=== PATIENT | female | born 1995 | race Caucasian/White ===

== ENCOUNTER → 2016-10-12 08:40 | Observation (INO) ==
[2016-10-12 08:22] LABS: Bilirubin,Urine Negative (Negative); Blood,Urine Negative (Negative); Clarity,Urine Turbid (Clear); Color,Urine Yellow (Yellow); Glucose,Urine (UA) Normal (Normal); Ketones,Urine Negative (Negative); Leukocyte Esterase,Urine Trace (Negative); Nitrite,Urine Negative (Negative); Protein,Urine Negative (Neg-Trace); Specific Gravity,Urine 1.017 (1.010-1.025); Urobilinogen,Urine Normal (Normal)
[2016-10-12 08:26] LABS: Bacteria,Urine Moderate per hpf (None-Few); Hyaline Casts,Urine None Seen per lpf (None-Few); RBC,Urine 0-3 per hpf (0-3); Squamous Epithelial Cell,Urine Many per lpf (None-Few)
[2016-10-12 08:38] LABS: Amorphous Sediment,Urine Present (Few)
--- NOTE | 2016-10-12 08:49 | Discharge Summary ---
Date of Encounter: 10/12/16 Time of Encounter: 08:49 - Discharge Diagnosis (1) Decreased movement Priority: Primary Status: Acute Comments: Patient arrives to labor and delivery triage with c/o decreased movement and cramping. 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 she denies a history of labor and with this and previous pregnancies. She states this has been uncomplicated. She denies vaginal bleeding, leaking of fluid, vaginal discharge, epigastric pain, and headache. When assessed by this CNM, patient states that she has had normal movement since arriving to triage. She denies intercourse in the past 48 hours. Urinalysis - contaminated monitoring - appropriate for gestational age, 150's with moderate variability and 10x10 accels. [place] - irritability Discharged home with labor precautions Encouraged oral hydration and good nutrition. Encouraged patient to follow up with primary SENIOR LEAD SOFTWARE ENGINEER as previously scheduled and as needed. Qualifiers: Fetus number: single or unspecified fetus Trimester: second trimester Qualified Code(s): O36.8120 - Decreased movements, second trimester, not applicable or unspecified (2) 26 weeks gestation of Priority: Primary Status: Acute Comments: Follow up with Dr Aguilar as previously scheduled for care. - Discharge Medications Home Medications: Ciprofloxacin HCl [Cipro] 500 mg PO BID #14 tablet 08/26/15 [Rx] Phenazopyridine HCl [Pyridium] 200 mg PO TIDAC #6 tab 08/26/15 [Rx] HYDROcodone/Acet 5/325 mg [Angora 5-325 mg] 1 tab PO Q6H PRN #012 tab 09/09/16 [ Rx] Pnv Plus Multivit Tab 10/12/16 [History] Allergies/Adverse Reactions: Allergies No Known Allergies Allergy (Verified 09/09/16 15:20) Data Procedures and tests throughout hospitalization: Laboratory Tests 10/12/16 08:17 Ur Specimen Adequacy See below A Urine Color Yellow Urine Clarity Turbid A Urine pH 7.0 Ur Specific [place] 1.017 Urine Protein Negative Urine Glucose (UA) Normal Urine Ketones Negative Urine Blood Negative Urine Nitrite Negative Urine Bilirubin Negative Urine Urobilinogen Normal Ur Leukocyte Esterase Trace H Urine Microscopic RBC 0-3 Urine Microscopic WBC 5-15 H Ur Squamous Epith Cells Many H Amorphous Sediment Present Urine Bacteria Moderate H Hyaline Casts None Seen Ur Culture Indicated? YES A Labs on day of discharge: Labs from last 24 hours 10/12/16 08:17 Ur Specimen Adequacy See below A Urine Color Yellow Urine Clarity Turbid A Urine pH 7.0 Ur Specific [place] 1.017 Urine Protein Negative Urine Glucose (UA) Normal Urine Ketones Negative Urine Blood Negative Urine Nitrite Negative Urine Bilirubin Negative Urine Urobilinogen Normal Ur Leukocyte Esterase Trace H Urine Microscopic RBC 0-3 Urine Microscopic WBC 5-15 H Ur Squamous Epith Cells Many H Amorphous Sediment Present Urine Bacteria Moderate H Hyaline Casts None Seen Ur Culture Indicated? YES A Date of admission: 10/12/16 07:17 Discharging clinician: Sonia Reece Anticipated date of discharge: 10/12/16 - Patient Status Disposition: Home, Self-Care Condition: Good Functional capacity at discharge: independent ambulation Overall status at discharge: patient is back to baseline - Discharge Instructions Follow Up With: Gilberto Aguilar MD [Non-Partnered Physician] - Additional Instructions: LABOR AND DELIVERY DISCHARGE INSTRUCTIONS Signs and Symptoms to be Reported to your Doctor Immediately: * Sudden gush, continuous or intermittent lead of fluid from vagina (note the time of gush and color of fluid) * Onset of bright red vaginal bleeding with or without pain (if you had a vaginal exam during this visit you may notice some dark red spotting. This is normal.) * Lower abdominal cramping or backache that is premenstrual-like feeling. * More than 6 contractions in one hour. * Burning during urination, having to urinate more frequently or pain in your mid-back. * A change in the baby's activity. This could be an increase or decrease in activity. * Severe headache which does not go away with tylenol. * Sudden swelling in the face, hands, arms and/or legs. * Upper abdominal pain - sometimes associated with heartburn or nausea and is not relieved by Maalox, Mylanta or Tums. * Dizziness or blurred vision or visual disturbances (seeing stars/lights). * Kick Counts One hour after a meal, lay down on one side in a quiet place. Count the number of adiel the baby moves during an hour. If less than 6 movements, notify your physician. Diet: *Force fluids - 8-10 tall glasses of fluid per day. May include popsicles and jello. *Limit caffeine - this includes chocolate, coffee, tea, any soft drink containing such as all saul, Quinn Yellow and Mountain Dew keep scheduled appointment with Dr Aguilar - Diet and Activity Activity: resume usual activities as tolerated Diet: regular diet Hospital Course EMERGENCY MANAGEMENT PROGRAM SPECIALIST Time Attestation: Total time spent providing and/or coordinating discharge services: Time Spent: Less than 30 minutes Exam - Constitutional General appearance IM: cooperative, A&O X 3, pleasant - Respiratory Respiratory exam: Present: CTAB - Cardiovascular Cardiovascular exam IM: Present: RRR, +S1, +S2 - GI/Abdominal GI/Abdominal exam IM: normal bowel sounds - Rectal Rectal exam: deferred - Additional comments: Appropriate for gestational age; positive movement per patient report FHTs 150's with moderate variability and 10x10 accels with no decels. [place] - irritability. - Extremities Exam Extremities exam IM: Present: normal capillary refill, normal inspection, radial pulses palpable and symetrical - Neurological Exam Neurological exam: alert, oriented X3, reflexes normal
== END | disposition home or self-care (01) ==
LOC: 1NENULAB
PROVIDERS: ADMIT Obstetrics & Gynecology; ATTEND Obstetrics & Gynecology

== ENCOUNTER → 2016-12-11 20:55 | Observation (INO) ==
[2016-12-11 19:09] LABS: Bilirubin,Urine Negative (Negative); Blood,Urine Negative (Negative); Clarity,Urine Cloudy (Clear); Color,Urine Yellow (Yellow); Glucose,Urine (UA) Normal (Normal); Ketones,Urine Negative (Negative); Leukocyte Esterase,Urine Small (Negative); Nitrite,Urine Negative (Negative); PH,Urine 6.5 pH Units (5.0-8.0); Protein,Urine Negative (Neg-Trace); Urobilinogen,Urine Normal (Normal)
[2016-12-11 19:10] LABS: Bacteria,Urine Moderate per hpf (None-Few); Hyaline Casts,Urine None Seen per lpf (None-Few); Squamous Epithelial Cell,Urine Many per lpf (None-Few)
[2016-12-11 19:15] LABS: Amphetamine Screen,Urine Negative ng/mL (Cutoff=1000); Barbiturate Screen,Urine Negative ng/mL (Cutoff=200); Benzodiazepines Screen,Urine Negative ng/mL (Cutoff=200); Cannabinoid Screen,Urine Negative ng/mL (Cutoff = 50); Cocaine Screen,Urine Negative ng/mL (Cutoff= 300); Opiate Screen,Urine Negative ng/mL (Cutoff=300); Phencyclidine Screen,Urine Negative ng/mL (Cutoff=25)
[2016-12-11 19:20] LABS: RBC,Urine 0-3 per hpf (0-3)
--- NOTE | 2016-12-15 18:31 | OB/GYN Progress Note ---
Date of Encounter: 12/15/16 Time of Encounter: 18:29 - Assessment and Plan (1) 34 weeks gestation of Status: Acute (2) Vaginal discharge during in third trimester Status: Acute Pt believes she has a yeast infection like she has had in the past. RN reports thick, white discharge with SVE. Rx for terazol cream called to pharmacy. Subjective - Subjective Interval history: Pt seen and evaluated by nursing staff for vaginal discharge. Nitrazine negative. White, thick, discharge noted on exam. No cervical change while in triage. Antepartum ROS: movement normal, contractions, no loss of fluid, no vaginal bleeding Objective - Exam FHR: category 1 FHR comments: NST reactive - Labs Labs: Abnormal lab results Urine Clarity Cloudy (Clear) A 12/11/16 18:49 Ur Leukocyte Esterase Small (Negative) H 12/11/16 18:49 Urine Microscopic WBC 5-15 per hpf (0-3) H 12/11/16 18:49 Ur Squamous Epith Cells Many per lpf (None-Few) H 12/11/16 18:49 Urine Bacteria Moderate per hpf (None-Few) H 12/11/16 18:49 Ur Culture Indicated? YES (NO) A 12/11/16 18:49
== END | disposition home or self-care (01) ==
LOC: 1NENULAB
PROVIDERS: ADMIT Registered Nurse; ATTEND Registered Nurse

== ENCOUNTER → 2017-01-01 20:10 | Observation (INO) ==
[2017-01-01 18:28] LABS: Amphetamine Screen,Urine Negative ng/mL (Cutoff=1000); Barbiturate Screen,Urine Negative ng/mL (Cutoff=200); Benzodiazepines Screen,Urine Negative ng/mL (Cutoff=200); Cannabinoid Screen,Urine Negative ng/mL (Cutoff = 50); Cocaine Screen,Urine Negative ng/mL (Cutoff= 300); Opiate Screen,Urine Negative ng/mL (Cutoff=300); Phencyclidine Screen,Urine Negative ng/mL (Cutoff=25)
[2017-01-01 19:00] LABS: Basophils % 0.3 %; Eosinophils # 0.2 K/mcL (0.0-0.6); Eosinophils % 1.5 %; Hematocrit 30.3 % (35.3-44.9); Hemoglobin 9.5 g/dL (11.5-15.4); Immature Granulocytes % 1.7 % (0-4); Lymphocytes # 1.8 K/mcL (0.6-4.6); Lymphocytes % 17.6 %; Mean Corpuscular HGB Conc 31.4 g/dL (31.6-35.5); Mean Corpuscular Hemoglobin 25.1 pg (28.0-33.3); Mean Corpuscular Volume 80.2 fL (83.0-100.0); Mean Platelet Volume 11.1 fL (9.4-12.4); Monocytes # 1.2 K/mcL (0.0-1.3); Monocytes % 11.8 %; Neutrophils # 6.9 K/mcL (1.6-8.9); Platelet Count 166 K/mcL (140-400); Red Blood Count 3.78 M/mcL (3.82-4.97); Red Cell Distribution Width 17.1 % (11.5-14.5); Segmented Neutrophils % 67.1 %
[2017-01-01 19:12] LABS: Protein/Creatinine Ratio,Urine 0.17 mg/mg (0-0.20)
[2017-01-01 19:14] LABS: Aspartate Amino Transferase 13 Units/L (5-34); BUN/Creatinine Ratio 15 (6-26); Blood Urea Nitrogen 9 mg/dL (7-20); Lactate Dehydrogenase 161 Units/L (159-327); Uric Acid 5.2 mg/dL (2.6-6.0); eGFR For African Americans > 60 (> 60); eGFR For Non-African Americans > 60 (> 60)
[2017-01-01 19:17] LABS: Alanine Aminotransferase < 6 Units/L (0-55)
--- NOTE | 2017-01-01 20:03 | Discharge Summary ---
Date of Encounter: 01/01/17 Time of Encounter: 20:04 - Discharge Diagnosis (1) NST (non-stress test) reactive Priority: Secondary Status: Acute Comments: Reactive NST; category I tracing (2) headache in third trimester Priority: Primary Status: Acute Comments: Ms Fernandes presents with a headache for the past 2 days with increased swelling of hands and feet. She states decreased movement since Monday, but still making kick counts. She denies contractions/cramping/pain, leaking of fluid, vaginal bleeding/discharge, visual disturbances, and epigastric pain. Blood pressures WNL PIH labs WNL; H/H decreased will send home with BID ferrous sulfate, stressed importance of taking UDS negative Urine pro/crea WNL Reactive NST Discharge home with labor precautions and PIH precautions. Follow up in office as schedule and PRN (3) Anemia affecting in third trimester Priority: Primary Status: Acute Comments: H/H decreased - Rx for ferrous sulfate given. Discussed importance of taking. (4) Decreased movement Priority: Primary Status: Acute Comments: Reactive NST Qualifiers: Fetus number: single or unspecified fetus Trimester: third trimester Qualified Code(s): O36.8130 - Decreased movements, third trimester, not applicable or unspecified (5) 37 weeks gestation of Priority: Secondary Status: Acute - Discharge Medications Prescriptions: Docusate [Colace] 100 mg PO BID PRN #60 capsule PRN Reason: Constipation Ferrous Sulfate 325 mg PO BIDWM #60 tablet Home Medications: Docusate [Colace] 100 mg PO BID PRN #60 capsule 01/01/17 [Rx] Ferrous Sulfate 325 mg PO BIDWM #60 tablet 01/01/17 [Rx] Allergies/Adverse Reactions: 3 Allergy/AdvReac Type Severity Reaction Status Date / Time No Known Allergies Allergy Verified 01/01/17 17:33 Data Procedures and tests throughout hospitalization: Laboratory Tests 01/01/17 01/01/17 01/01/17 17:55 18:50 18:50 WBC 10.3 RBC 3.78 L Hgb 9.5 L Hct 30.3 L MCV 80.2 L MCH 25.1 L MCHC 31.4 L RDW 17.1 H Plt Count 166 MPV 11.1 Immature Gran % 1.7 Seg Neutrophils % 67.1 Lymphocytes % 17.6 Monocytes % 11.8 Eosinophils % 1.5 Basophils % 0.3 Neutrophils # 6.9 Lymphocytes # 1.8 Monocytes # 1.2 Eosinophils # 0.2 Basophils # 0.0 BUN 9 Creatinine 0.59 Est GFR ( Amer) > 60 Est GFR (Non-Af Amer) > 60 BUN/Creatinine Ratio 15 Uric Acid 5.2 AST 13 ALT < 6 Lactate Dehydrogenase 161 Urine Creatinine Protein/Creatinin Ratio Urine Total Protein Urine Opiates Screen Negative Ur Barbiturates Screen Negative Ur Phencyclidine Scrn Negative Ur Amphetamines Screen Negative U Benzodiazepines Scrn Negative Urine Cocaine Screen Negative U Marijuana (THC) Screen Negative 01/01/17 18:50 WBC RBC Hgb Hct MCV MCH MCHC RDW Plt Count MPV Immature Gran % Seg Neutrophils % Lymphocytes % Monocytes % Eosinophils % Basophils % Neutrophils # Lymphocytes # Monocytes # Eosinophils # Basophils # BUN Creatinine Est GFR ( Amer) Est GFR (Non-Af Amer) BUN/Creatinine Ratio Uric Acid AST ALT Lactate Dehydrogenase Urine Creatinine 60 Protein/Creatinin Ratio 0.17 Urine Total Protein 10 Urine Opiates Screen Ur Barbiturates Screen Ur Phencyclidine Scrn Ur Amphetamines Screen U Benzodiazepines Scrn Urine Cocaine Screen U Marijuana (THC) Screen Labs on day of discharge: Labs from last 24 hours 01/01/17 01/01/17 01/01/17 18:50 18:50 18:50 WBC 10.3 RBC 3.78 L Hgb 9.5 L Hct 30.3 L MCV 80.2 L MCH 25.1 L MCHC 31.4 L RDW 17.1 H Plt Count 166 MPV 11.1 Immature Gran % 1.7 Seg Neutrophils % 67.1 Lymphocytes % 17.6 Monocytes % 11.8 Eosinophils % 1.5 Basophils % 0.3 Neutrophils # 6.9 Lymphocytes # 1.8 Monocytes # 1.2 Eosinophils # 0.2 Basophils # 0.0 BUN 9 Creatinine 0.59 Est GFR ( Amer) > 60 Est GFR (Non-Af Amer) > 60 BUN/Creatinine Ratio 15 Uric Acid 5.2 AST 13 ALT < 6 Lactate Dehydrogenase 161 Urine Creatinine 60 Protein/Creatinin Ratio 0.17 Urine Total Protein 10 Urine Opiates Screen Ur Barbiturates Screen Ur Phencyclidine Scrn Ur Amphetamines Screen U Benzodiazepines Scrn Urine Cocaine Screen U Marijuana (THC) Screen 01/01/17 17:55 WBC RBC Hgb Hct MCV MCH MCHC RDW Plt Count MPV Immature Gran % Seg Neutrophils % Lymphocytes % Monocytes % Eosinophils % Basophils % Neutrophils # Lymphocytes # Monocytes # Eosinophils # Basophils # BUN Creatinine Est GFR ( Amer) Est GFR (Non-Af Amer) BUN/Creatinine Ratio Uric Acid AST ALT Lactate Dehydrogenase Urine Creatinine Protein/Creatinin Ratio Urine Total Protein Urine Opiates Screen Negative Ur Barbiturates Screen Negative Ur Phencyclidine Scrn Negative Ur Amphetamines Screen Negative U Benzodiazepines Scrn Negative Urine Cocaine Screen Negative U Marijuana (THC) Screen Negative Date of admission: 01/01/17 17:08 Discharging clinician: Sonia Reece Anticipated date of discharge: 01/01/17 - Patient Status Disposition: Home, Self-Care Condition: Good Functional capacity at discharge: independent ambulation Overall status at discharge: patient is back to baseline - Discharge Instructions Follow Up With: Idalia Gonzales CNM [Non-Partnered Physician] - Additional Instructions: LABOR AND DELIVERY DISCHARGE INSTRUCTIONS Signs and Symptoms to be Reported to your Doctor Immediately: * Sudden gush, continuous or intermittent lead of fluid from vagina (note the time of gush and color of fluid) * Onset of bright red vaginal bleeding with or without pain (if you had a vaginal exam during this visit you may notice some dark red spotting. This is normal.) * Contractions that are 5 minutes apart (from the beginning of one contraction to the beginning of the next) and last 45-60 seonds; contractions that you can no longer walk, talk or laugh through. * A change in the baby's activity. This could be an increase or decrease in activity. * Severe headache which does not go away with tylenol. * Sudden swelling in the face, hands, arms and/or legs. * Upper abdominal pain - sometimes associated with heartburn or nausea and is not relieved by Maalox, Mylanta or Tums. * Kick Counts __ One hour after a meal, lay down on one side in a quiet place. Count the number of time the baby moves during an hour. If less than 6 movements, notify your physician Diet: *Force fluids, 8 to 10 tall glasses of fluid per day - may include popsicles and jello *Limit caffeine - this includes chocolate, coffee, tea, any soft drink containing such as all saul, Quinn Yellow and Mountain Dew - Diet and Activity Activity: resume usual activities as tolerated Diet: regular diet (Increase water intake) Hospital Course TELECOMMUNICATIONS SALES REPRESENTATIVE Time Attestation: Total time spent providing and/or coordinating discharge services: Exam - Constitutional General appearance IM: cooperative, A&O X 3, pleasant - Additional comments: FHTs 135 with moderate variability and 15 x 15 accels. No decels. Category I tracing. Occasional contractions; patient not feeling them. - VTE Reasons for not Prescribing Prophylaxis: Treatment not Indicated - Low risk for VTE
== END | disposition home or self-care (01) ==
LOC: 1NENULAB
PROVIDERS: ADMIT Student in an Organized Health Care Education/Training Program; ATTEND Student in an Organized Health Care Education/Training Program

== ENCOUNTER 2017-01-06 16:00 | Inpatient (IN) ==
[2017-01-06] MEDS ORDERED: Ringers Solution, Lactated 1,000 ML ONE (16:19)
[2017-01-06] MEDS ORDERED: *HR* Nalbuphine 20 MG/ML AMPUL IVP PRN (16:29)
[2017-01-06] MEDS ORDERED: Famotidine 20 MG/2 ML VIAL IVP PRN (16:29)
[2017-01-06] MEDS ORDERED: Naloxone 0.4 MG/ML INJ IVP PRN (16:29)
[2017-01-06] MEDS ORDERED: Ondansetron 4 MG/2 ML VIAL IVP PRN (16:29)
[2017-01-06] MEDS ORDERED: Ringers Solution, Lactated 1,000 ML IVC SCH (16:30)
--- NOTE | 2017-01-06 16:32 | OB/GYN History & Physical ---
Date of Encounter: 01/06/17 Time of Encounter: 16:31 Assessment and Plan (1) 38 weeks gestation of Current visit: Yes Status: Acute Patient in active labor at 7/8 centimeters dilation with contractions q5 minutes. -admit for labor and delivery (2) Rubella non-immune status, antepartum Current visit: Yes Status: Acute Vaccinate post- (3) Rh negative status during in third trimester Current visit: Yes Status: Acute Rhogam if needed. History of Present Illness Chief complaint: Active Labor HPI: Ms. Fernandes is a 21 year old female at 38 weeks 2 days presents in active labor. She is currently 7/8cm dilated. Patient is resting comfortably. She reports contractions every 5 minutes lasting a minute a piece. She denies any fluid leakage or blood, although she does state she felt as though she " peed her pants" earlier in the day. Patient does report a headache earlier in the day, but states it has resolved. She denies any epigastric or RUQ pain. She denies nausea, vomitting, or diarrhea. She denies dysuria. Patient states her last baby was 38 weeks at delivery. Patient's labs are as follows: O- GBS- Rubella non-immune HbsAg- HCV- GC- Past Med Surg Social Fam HX - Past Medical History Attestation: Yes The following information was validated with the patient. Source: patient Medical history: no medical history Psychiatric history: no psych history - Past Surgical History Surgical History: other (Dental work) - Social History Smoking Status: Former smoker Smokeless Tobacco Status: No Alcohol use: none Drug use: none - Family History Father Adopted: No Living Status: Still Living Hx Family Cardiac Disorders: No Hx Family Respiratory Disorders: No Hx Family Cancer: No Hx Family GI Disorders: No Hx Family Endocrine Disorder: No Hx Family Neuromuscular Disorders: No Hx Family Neurologic Disorders: Yes (seizures) Hx Family HEENT Disorders: No Hx Family Autoimmune Disorders: No Obstetrical History - Pregnancies : 3 Para: 1 Term: 1 : 0 Ab's: 1 Livin Medications and Allergies Docusate [Colace] 100 mg PO BID PRN #60 capsule 01/01/17 [Rx] Ferrous Sulfate 325 mg PO BIDWM #60 tablet 01/01/17 [Rx] Vit/Iron Fumarate/FA [ Tablet] 1 each PO DAILY 01/06/17 [ History] 3 Allergy/AdvReac Type Severity Reaction Status Date / Time No Known Allergies Allergy Verified 01/01/17 17:33 Review of System OB - Cardiovascular Cardiovascular: as per HPI, no chest pain, no claudication, no diaphoresis, no leg edema, no palpitations, no rapid heart rate - Respiratory Respiratory: as per HPI, no cough, no dyspnea, no dyspnea on exertion, no wheezing - Gastrointestinal Gastrointestinal: as per HPI, heartburn, no abdominal pain, no coffee ground emesis - Genitourinary Genitourinary: as per HPI, no pelvic pain, no vaginal odor - Integumentary Integumentary: as per HPI, no rash, no unusual bruising Exam - Constitutional Constitutional: well developed, well nourished, no acute distress - HEENT HEENT: Mucus Membranes Moist - Lungs Respiratory exam: CTAB - Cardiovascular Cardiovascular exam: RRR, +S1, +S2 - Abdomen Abdomen: Present: bowel sounds normal, gravid, non tender - Extremities Extremities exam: normal inspection, radial pulses palpable and symmetrical Deep Tendon Reflex Grade: 2+ Normal - Cervix Dilation: 7 (per Nurse) Effacement: 80 Station: -2 - Uterus Uterus exam: Present: normal size - Comments Comments: Category 1 tracing, FHR 150BPM, moderate variability, +15x15 accels, no decels. Contractions 3-5 minutes apart. Results All other labs normal. - VTE Reasons for not Prescribing Prophylaxis: Treatment not Indicated - Low risk for VTE
[2017-01-06 16:52] LABS: Basophils % 0.2 %; Eosinophils # 0.2 K/mcL (0.0-0.6); Eosinophils % 1.3 %; Hematocrit 33.8 % (35.3-44.9); Hemoglobin 10.7 g/dL (11.5-15.4); Immature Granulocytes % 1.7 % (0-4); Lymphocytes # 2.8 K/mcL (0.6-4.6); Lymphocytes % 21.9 %; Mean Corpuscular HGB Conc 31.7 g/dL (31.6-35.5); Mean Platelet Volume 10.8 fL (9.4-12.4); Monocytes # 1.4 K/mcL (0.0-1.3); Monocytes % 10.8 %; Neutrophils # 8.1 K/mcL (1.6-8.9); Platelet Count 210 K/mcL (140-400); Red Blood Count 4.28 M/mcL (3.82-4.97); Red Cell Distribution Width 18.5 % (11.5-14.5); Segmented Neutrophils % 64.1 %
[2017-01-06 17:08] LABS: Amphetamine Screen,Urine Negative ng/mL (Cutoff=1000); Barbiturate Screen,Urine Negative ng/mL (Cutoff=200); Benzodiazepines Screen,Urine Negative ng/mL (Cutoff=200); Cannabinoid Screen,Urine Negative ng/mL (Cutoff = 50); Cocaine Screen,Urine Negative ng/mL (Cutoff= 300); Opiate Screen,Urine Negative ng/mL (Cutoff=300); Phencyclidine Screen,Urine Negative ng/mL (Cutoff=25)
--- NOTE | 2017-01-06 21:29 | OB Labor Progress Note ---
Date of Encounter: 01/06/17 Time of Encounter: 21:15 Labor Progress Note - Subjective Subjective: Pt working well through contractions and resting in between. Has changed positions multiple times for pain relief. Desires AROM at this time. - Cervix Cervix: 8/90/-2 - Heart Tones Heart Tones: FHR 140 bpm, moderate variability, + 15x15 accels, no decels. Category I tracing. - [place]: 2-4 minutes - Interventions Interventions: SVE, AROM for moderate amount of clear fluid at 2111 - Plan Plan: Continue labor management. Anticipate
[2017-01-06] MEDS ORDERED: Epidural Premix (fent/bupiv) 110 ML EP ONE (22:13)
--- NOTE | 2017-01-06 22:59 | Anesthesia Evaluation PreOp ---
Date of Encounter: 01/06/17 Time of Encounter: 22:15 - Past History Planned Operation: PATRICE Cardiac History: Denies any Significant Hx Pulmonary History: Denies Any Significant HX RELOCATION SPECIALIST History: Denies Any Significant HX Other Medical History: Denies Any Significant HX Anesthesia History: No Prior Anesthetic Complications : Yes Test: Positive Alcohol Use: none Drug use: none Medications and Allergies Docusate [Colace] 100 mg PO BID PRN #60 capsule 01/01/17 [Rx] Ferrous Sulfate 325 mg PO BIDWM #60 tablet 01/01/17 [Rx] Vit/Iron Fumarate/FA [ Tablet] 1 each PO DAILY 01/06/17 [ History] 3 Allergy/AdvReac Type Severity Reaction Status Date / Time No Known Allergies Allergy Verified 01/01/17 17:33 - Meds/Allergy Pre-op Review Medications Reviewed: Yes Allergies Reviewed: Yes Anesthesia Results - Labs 01/06/17 16:20 Anesthesia Exam Height: 64 Weight: 96.3 NPO (# of Hours): 8 Pain Scale: 10 - HEENT Pupil (Motor): Pupils equal Mallampati: II Teeth: Normal Oral Opening: Greater than 3 - RELOCATION SPECIALIST LOC: Oriented RELOCATION SPECIALIST Motor: Normal RUE, Normal LUE, Normal RLE, Normal LLE, Normal Face RELOCATION SPECIALIST Sensory: Normal: RUE, LUE, RLE, LLE, Face - Cardiac Rhythm: Regular Murmur: None JVD: No Carotid Bruit: No - Pulmonary Breath Sounds: bilateral Clear Respiratory Effort: Symmetrical Anesthesia Assess/Plan ASA Score: 2 Modified [place] Scale for Level of Consciousness: Cooperative, oriented, and tranquil Anesthetic Plan: Regional Autologous Blood: No Monitoring Plan: Standard Monitors
[2017-01-06] MEDS ORDERED: Epidural Premix (fent/bupiv) 110 ML EP SCH (23:00)
--- NOTE | 2017-01-06 23:01 | Anesthesia Procedures ---
Date of Encounter: 01/06/17 Time of Encounter: 22:15 Procedures: Anesthesia - Epidural/Spinal Patient ID/Chart reviewed: Yes Patient examined: Yes OB Eval: : 2 OB Eval: Hx Para: 1 OB Eval: Dilated at (cm): 8 OB Eval: Contractions: Non-stressed pattern Consent Obtained: Yes Supplemental Oxygen: None/Room Air Site Prep: Aseptic Technique, Sterile prep and drape, Povidone-Iodine 1% Patient position: upright Local Anesthetic: Lidocaine 1% Amount of Local Anesthetic used: 3 Touhy Needle Gauge: 18 Touhy Needle Depth (cm): 6 Catheter Depth at Skin (cm): 8 Test Dose (1.5% Lido + Epi): Volume given (mls): 3 Test Dose Result: Negative Loading Dose Administered: Thru Catheter Infusion Med: 0.125% Bupivacaine w/ 2 mcg/ml Fentanyl Infusion Rate (mls/hr): [address]: Tegaderm, Tape Interspace Used: L4-L5 Loss of Resistance (JENNIFER): Yes Blood: No CSF: No Paresthesia: No Vitals + FHT's: stable throughout see nursing notes
--- NOTE | 2017-01-06 23:13 | OB Labor Progress Note ---
Date of Encounter: 01/06/17 Time of Encounter: 23:11 Labor Progress Note - Subjective Subjective: Called to room due to patient feeling rectal pressure. Pt now comfortable after epidural placement. - Cervix Cervix: Complete/0 station - Heart Tones Heart Tones: FHR 135 bpm, moderate variability, +15x15 accels, no decels. Category I tracing. - [place]: 2-4 minutes - Interventions Interventions: SVE, attempted pushing. - Plan Plan: Pt with poor pushing efforts. Pt agreeable to labor down. Continue labor managment Anticipate
[2017-01-06] MEDS ORDERED: Oxytocin 20 units/ LR 1000 mL 20 UNIT/1,000 ML BAG IVC ONE (23:56)
--- NOTE | 2017-01-07 01:04 | OB/GYN Procedure Note ---
Delivery - Delivery Date: 01/07/17 Provider: Nathalie Stanton Intrapartum events: none Delivery induction: none Delivery augmentation: rupture of membranes Delivery monitor: external FHT, external uterine Anesthesia: epidural Estimated Blood Loss: 400 - (s) Infant A Delivery Date: 01/06/17 Infant Delivery Time: 00:33 Presentation: vertex Position: CLARITA Route of delivery: Gender: Male Viability: Viable Pounds: 11 Ounces: 2 Weight Gram: 5040 kg at 1 minute: 4 at 5 mins: 8 Shoulder Dystocia: encountered (see delivery comments) Shoulder Dystocia Maneuvers: Ciro maneuver, suprapubic pressure Shoulder dystocia time elapsed: 123 seconds Specimens collected: venous cord gases, arterial cord gases Placenta: spontaneous Cord: 3 umbilical vessels - Repair Episiotomy: none Laceration Description: None - Complications Delivery complications: none Delivery comments: 21 year-old presented in active labor at 38 weeks. This was complicated by known LGA fetus with EFW 4066g on 12/30/16. The patient was then counseled by Clare Parra CNM and Dr. Whaley about risks of shoulder dystocia vs primary delivery. She opted for trial of labor. She was 8cm dilated upon arrival today and was again counseled on risks vs benefits of vaginal delivery. She received an epidural and progressed normally to complete and +2. Under materal effort the head was delivered easily. No nuchal was noted. A shoulder dystocia was encountered and was immediately recognized and additional help was called including Dr. Michaud and nursery staff. McRobert's maneuver and suprapubic pressure were attempted with only gentle downward traction on the head. These maneuvers were ineffective. At this time maternal efforts were discontinued and delivery of the posterior arm was attempted. The wrist of the posterior (right) arm was noted to be behind the baby's back so rotational maneuvers were initiated. Pressure was applied to the posterior aspect of the left shoulder. The anterior shoulder was then released and delivery of the posterior shoulder and body was accomplished with maternal pushing efforts. The infant was non-vigorous at time of delivery so the cord was rapidly clamped and cut and the baby was handed off to nursery staff in attendance. The placenta delivered spontaneously and intact. No lacerations were noted. EBL 400ml. Baby boy "Augustin" weighed 11lbs. 2oz and apgars were 4 at one minute and 8 at five minutes. Mother stable in DR following delivery. taken to nursery for observation in stable condition. Cord gases collected. All counts correct. - Disposition Mom disposition: stable in LDR disposition: taken to nursery
[2017-01-07] MEDS ORDERED: Oxytocin 20 units/ LR 1000 mL 20 UNIT/1,000 ML BAG IVC ONE (03:06)
[2017-01-07] MEDS ORDERED: Lanolin 7 G OINT...G. TP PRN (03:39)
[2017-01-07] MEDS ORDERED: Acetaminophen 325 MG TABLET PO PRN (03:39)
[2017-01-07] MEDS ORDERED: Oxytocin 20 units/ LR 1000 mL 20 UNIT/1,000 ML BAG IVC SCH (03:39)
[2017-01-07] MEDS ORDERED: Measles/Mumps/Rubella Vacc 0.5 ML VIAL SQ PRN (03:39)
[2017-01-07] MEDS ORDERED: Rho Immune Globulin 1,500 UNIT SYRINGE IM PRN (03:39)
[2017-01-07] MEDS: Prenatal Vit/FA 1 EACH TABLET PO SCH (08:49)
[2017-01-07] MEDS: Ibuprofen 600 MG TABLET PO PRN (09:17)
[2017-01-08 08:38] VITALS: BP 109/65
[2017-01-08] MEDS: Prenatal Vit/FA 1 EACH TABLET PO SCH (08:48)
[2017-01-08] MEDS: Ibuprofen 600 MG TABLET PO PRN (08:48)
--- NOTE | 2017-01-08 11:21 | Discharge Summary ---
Date of Encounter: 01/08/17 Time of Encounter: 11:19 - Discharge Diagnosis (1) (normal spontaneous vaginal delivery) Priority: Primary Status: Acute Comments: Doing well without c/o. - Discharge Medications Home Medications: Docusate [Colace] 100 mg PO BID PRN #60 capsule 01/01/17 [Rx] Ferrous Sulfate 325 mg PO BIDWM #60 tablet 01/01/17 [Rx] Vit/Iron Fumarate/FA [ Tablet] 1 each PO DAILY 01/06/17 [ History] Allergies/Adverse Reactions: 3 Allergy/AdvReac Type Severity Reaction Status Date / Time No Known Allergies Allergy Verified 01/01/17 17:33 Data Procedures and tests throughout hospitalization: Laboratory Tests 01/06/17 01/06/17 01/07/17 16:20 16:20 00:50 WBC 12.6 H RBC 4.28 Hgb 10.7 L Hct 33.8 L MCV 79.0 L MCH 25.0 L MCHC 31.7 RDW 18.5 H Plt Count 210 MPV 10.8 Immature Gran % 1.7 Seg Neutrophils % 64.1 Lymphocytes % 21.9 Monocytes % 10.8 Eosinophils % 1.3 Basophils % 0.2 Neutrophils # 8.1 Lymphocytes # 2.8 Monocytes # 1.4 H Eosinophils # 0.2 Basophils # 0.0 Urine Opiates Screen Negative Ur Barbiturates Screen Negative Ur Phencyclidine Scrn Negative Ur Amphetamines Screen Negative U Benzodiazepines Scrn Negative Urine Cocaine Screen Negative U Marijuana (THC) Screen Negative Screen NEGATIVE Baby's Blood Type O RH POSITIVE Mother's Blood Type O RH NEGATIVE Rhogam Indicated YES Rhogam Req for Mother 1 - Impressions Doing well without c/o. Appropriate cramping and bleeding. Date of admission: 01/06/17 16:00 Primary care physician: Leon Szymanski Consults: 01/07/17 03:39 Consult to Wheel Presser [CONS] Routine Comment: Vaginal delivery, consult needed - Patient Status Disposition: Home, Self-Care Condition: Good Functional capacity at discharge: independent ambulation Overall status at discharge: patient is progressing back to baseline - Discharge Instructions Follow Up With: Mikel Michaud MD [Partnered Physician] - - Diet and Activity Activity: increase activity as tolerated Diet: advance to your usual diet Hospital Course Episiotomy: none Time Attestation: Total time spent providing and/or coordinating discharge services: Exam - Constitutional Vitals: Temp Pulse Resp BP Pulse Ox 97.6 F 74 14 109/65 99 01/08/17 08:36 01/08/17 08:36 01/08/17 08:36 01/08/17 08:36 01/08/17 08:36 General appearance IM: A&O X 3 - Respiratory Respiratory exam: Present: CTAB - Cardiovascular Cardiovascular exam IM: Present: RRR - GI/Abdominal GI/Abdominal exam IM: normal bowel sounds - Uterus Position: 2 Fingers Below Umbilicus - Extremities Exam Extremities exam IM: Present: full ROM - Neurological Exam Neurological exam: oriented X3
== END 2017-01-08 11:55 | disposition home or self-care (01) | DRG 560 ==
LOC: 1NENULAB → OBSVTOIN 16:00 → 1NENUOBS 01-07 03:14
PROVIDERS: ADMIT Obstetrics & Gynecology; ATTEND Obstetrics & Gynecology

== ENCOUNTER → 2020-08-01 18:30 | Observation (INO) ==
[2020-08-01 16:58] LABS: Bacteria,Urine Few per hpf (None-Few); Bilirubin,Urine Negative (Negative); Blood,Urine Negative (Negative); Clarity,Urine Turbid (Clear); Color,Urine Yellow (Yellow); Glucose,Urine (UA) Normal (Normal); Ketones,Urine Negative (Negative); Leukocyte Esterase,Urine Negative (Negative); Mucus,Urine Few per lpf (None-Few); Nitrite,Urine Negative (Negative); PH,Urine 6.5 pH Units (5.0-8.0); Protein,Urine Trace mg/dL (Neg-Trace); RBC,Urine 0-3 per hpf (0-3); Squamous Epithelial Cell,Urine Moderate per hpf (None-Few); Urobilinogen,Urine Normal (Normal); WBC,Urine 0-3 per hpf (0-3)
[2020-08-01 17:52] LABS: Candida DNA Not Detected (Not Detect); Gardnerella DNA Not Detected (Not Detect); Trichomonas DNA Not Detected (Not Detect)
== END | disposition home or self-care (01) ==
LOC: 1NENULAB
PROVIDERS: ADMIT Registered Nurse; ATTEND Registered Nurse

== ENCOUNTER 2020-09-08 14:03 | Inpatient (IN) ==
[~2020-09-08 14:03] MED LIST: *HR* Nalbuphine 10 MG/ML AMPUL IV PRN; Famotidine 20 MG/2 ML VIAL IVP PRN; Lidocaine 1% 20 ML MDV INFILT PRN; Metoclopramide 10 MG/2 ML VIAL IVP PRN; Naloxone 0.4 MG/ML INJ IVP PRN; Ondansetron 4 MG/2 ML VIAL IVP PRN; Oxytocin 20 units/ LR 1000 mL 20 UNIT/1,000 ML BAG IVC SCH; Ringers Solution, Lactated 1,000 ML IVC SCH; Ringers Solution, Lactated 1,000 ML ONE
[2020-09-08 14:54] LABS: Basophils # 0.1 K/mcL (0.0-0.2); Basophils % 0.4 %; Eosinophils # 0.2 K/mcL (0.0-0.6); Eosinophils % 1.5 %; Hematocrit 35.6 % (35.3-44.9); Immature Granulocytes % 1.9 % (0-4); Lymphocytes # 1.8 K/mcL (0.6-4.6); Lymphocytes % 13.9 %; Mean Corpuscular HGB Conc 33.7 g/dL (31.6-35.5); Mean Corpuscular Hemoglobin 29.6 pg (28.0-33.3); Mean Corpuscular Volume 87.9 fL (83.0-100.0); Mean Platelet Volume 10.9 fL (9.4-12.4); Monocytes % 8.2 %; Neutrophils # 9.4 K/mcL (1.6-8.9); Platelet Count 188 K/mcL (140-400); Red Blood Count 4.05 M/mcL (3.82-4.97); Red Cell Distribution Width 14.6 % (11.5-14.5); Segmented Neutrophils % 74.1 %; White Blood Count 12.7 K/mcL (4.3-11.1)
[2020-09-08 15:02] LABS: Amphetamine Screen,Urine Negative ng/mL (Cutoff=1000); Barbiturate Screen,Urine Negative ng/mL (Cutoff=200); Benzodiazepines Screen,Urine Negative ng/mL (Cutoff=200); Cannabinoid Screen,Urine Negative ng/mL (Cutoff = 50); Cocaine Screen,Urine Negative ng/mL (Cutoff= 300); Opiate Screen,Urine Negative ng/mL (Cutoff=300); Phencyclidine Screen,Urine Negative ng/mL (Cutoff=25)
[2020-09-08] MEDS ORDERED: *HR* FentaNYL (PF) 100 MCG/2 ML VIAL ONE (20:45)
[2020-09-08] MEDS ORDERED: *HR* FentaNYL (PF) 100 MCG/2 ML VIAL EP ONE (21:27)
[2020-09-08] MEDS ORDERED: EPHEDrine 50 MG/ML VIAL IVP PRN (21:27)
[2020-09-08] MEDS ORDERED: Epidural Premix (fent/bupiv) 110 ML EP SCH (21:30)
[2020-09-09] MEDS ORDERED: Ropivacaine/PF 0.2% 20 ML VIAL ONE (02:28)
[2020-09-09] MEDS ORDERED: *HR* FentaNYL (PF) 100 MCG/2 ML VIAL ONE (02:28)
[2020-09-09] MEDS ORDERED: Oxytocin 20 units/ LR 1000 mL 20 UNIT/1,000 ML BAG IVC ONE (07:59)
[2020-09-09] MEDS ORDERED: Rho Immune Globulin 1,500 UNIT SYRINGE IM PRN (07:59)
[2020-09-09] MEDS ORDERED: Acetaminophen 325 MG TABLET PO PRN (07:59)
[2020-09-09] MEDS ORDERED: Oxytocin 20 units/ LR 1000 mL 20 UNIT/1,000 ML BAG IVC SCH (07:59)
[2020-09-09] MEDS ORDERED: Benzocaine/Menthol 56 GM AEROSOL SPRAY TP PRN (07:59)
[2020-09-09] MEDS ORDERED: Lanolin 7 G OINT...G. TP PRN (07:59)
[2020-09-09] MEDS: Ibuprofen 600 MG TABLET PO PRN ×3 (08:27→21:01)
[2020-09-09] MEDS: Prenatal Vit/FA 1 EACH TABLET PO SCH (08:28)
[2020-09-09] MEDS: Acetaminophen/Butalbital/CaffeineTABLET PO PRN (17:40)
[2020-09-09] MEDS: Caffeine Citrate Oral Soln 60 MG/3 ML PO PRN (21:47)
[2020-09-10] MEDS: Acetaminophen/Butalbital/CaffeineTABLET PO PRN ×2 (00:02→06:21)
[2020-09-10] MEDS: Ibuprofen 600 MG TABLET PO PRN ×2 (03:45→10:01)
[2020-09-10 06:16] LABS: Basophils # 0.1 K/mcL (0.0-0.2); Basophils % 0.4 %; Eosinophils # 0.1 K/mcL (0.0-0.6); Eosinophils % 0.9 %; Hematocrit 32.7 % (35.3-44.9); Hemoglobin 10.5 g/dL (11.5-15.4); Immature Granulocytes % 1.7 % (0-4); Lymphocytes # 2.1 K/mcL (0.6-4.6); Lymphocytes % 15.8 %; Mean Corpuscular HGB Conc 32.1 g/dL (31.6-35.5); Mean Corpuscular Hemoglobin 29.1 pg (28.0-33.3); Mean Corpuscular Volume 90.6 fL (83.0-100.0); Mean Platelet Volume 10.4 fL (9.4-12.4); Monocytes % 7.2 %; Neutrophils # 9.8 K/mcL (1.6-8.9); Platelet Count 168 K/mcL (140-400); Red Blood Count 3.61 M/mcL (3.82-4.97); Red Cell Distribution Width 14.7 % (11.5-14.5); White Blood Count 13.3 K/mcL (4.3-11.1)
[2020-09-10] MEDS ORDERED: Lidocaine -MPF 2% 5 ML VIAL ONE ×2 (06:50→13:11)
[2020-09-10] MEDS ORDERED: Bupivacaine-MPF 0.25% 10 ML VIAL ONE (06:51)
[2020-09-10] MEDS: Caffeine Citrate Oral Soln 60 MG/3 ML PO PRN (10:01)
[2020-09-10] MEDS: Prenatal Vit/FA 1 EACH TABLET PO SCH (10:01)
[2020-09-10] MEDS ORDERED: Neostigmine Methylsulfate 3 MG/3 ML SYRINGE ONE (13:01)
[2020-09-10] MEDS ORDERED: *HR* FentaNYL (PF) 100 MCG/2 ML VIAL ONE (13:10)
[2020-09-10 15:16] VITALS: BP 129/84
== END 2020-09-10 17:25 | disposition home or self-care (01) | DRG 560 ==
LOC: 1NENULAB → 1NENUOBS 09-09 07:46
PROVIDERS: ADMIT Advanced Practice Midwife; ATTEND Advanced Practice Midwife